=== PATIENT | male | born 1930 | race Caucasian/White ===

== ENCOUNTER → 2016-06-22 15:30 | Outpatient (CLI) | payer MEDICARE, OTHER ==
[2012-08-20 02:17] VITALS: BMI 17.7
[~2016-06-22 15:30] MED LIST: APIXABAN PO; ATIVAN1 MG PO; BAYER CHEWABLE81 MG PO; FLOMAX0.4 MG PO; HEALTHYLAX17 GM PO; PROTONIX40 MG PO; RESTORIL15 MG PO; TAMBOCOR100 MG PO
[2016-06-22 16:04] LABS: HEMOGLOBIN 12.9 g/dL (13.5-17.5); MCH 31.2 pg (26.0-34.0); MCHC 33.1 g/dL (31.0-37.0); MCV 94.4 fL (80.0-100.0); MEAN PLATELET VOLUME 9.6 fL (7.4-10.4); PLATELET COUNT 158 10x3/uL (130-400); RBC 4.13 10x6/uL (4.20-6.10); RDW 13.6 % (11.5-14.5); WBC 6.3 10x3/uL (4.8-10.8)
[2016-06-22 16:26] LABS: T4 THYROXINE 5.7 ug/dL (4.7-13.3); THYROID STIMULATING HORMONE 1.46 uIU/mL (0.36-3.74)
[2016-06-22 16:54] LABS: BASOPHILS 1 % (0-2); EOSINOPHILS 2 % (0-7); LYMPHOCYTES 27 % (15-50); MONOCYTES 4 % (2-11); NEUTROPHILS 65 % (40-80); PLATELET ESTIMATE DECREASED
== END | disposition home or self-care (01) ==
LOC: D.RAD 06-21 10:00 → D.LAB 06-21 11:00 → D.RAD 10:00
PROVIDERS: Internal Medicine Gastroenterology
DX: R10.9 Unspecified abdominal pain (principal); K59.00 Constipation, unspecified

== ENCOUNTER → 2016-10-12 14:35 | Outpatient (CLI) | payer MEDICARE, OTHER ==
[2012-08-20 02:17] VITALS: BMI 17.7
[2016-10-12 15:00] LABS: BASOPHILS 0.3 % (0-2); HEMATOCRIT 38.1 % (42.0-54.0); HEMOGLOBIN 13.1 g/dL (13.5-17.5); IMMATURE GRANULOCYTES 0.3 % (0-5); LYMPHOCYTES 19.2 % (15-50); MCHC 34.4 g/dL (31.0-37.0); MCV 93.2 fL (80.0-100.0); MEAN PLATELET VOLUME 9.2 fL (7.4-10.4); MONOCYTES 8.6 % (2-11); NEUTROPHILS 67.6 % (40-80); PLATELET COUNT 176 10x3/uL (130-400); RBC 4.09 10x6/uL (4.20-6.10); RDW 13.6 % (11.5-14.5); WBC 7.7 10x3/uL (4.8-10.8)
[2016-10-12 15:29] LABS: ALBUMIN 3.6 g/dL (3.4-5.0); ANION GAP 11.3 mmol/L (8-16); BILIRUBIN - TOTAL 0.36 mg/dL (0.2-1.3); C-REACTIVE PROTEIN 0.2 mg/dL (0.0-0.9); CALCIUM 8.6 mg/dL (8.5-10.1); CARBON DIOXIDE 28.7 mmol/L (21.0-32.0); CREATININE - SERUM 1.1 mg/dL (0.6-1.3); PROTEIN - SERUM 6.9 g/dL (6.4-8.2)
== END | disposition home or self-care (01) ==
LOC: D.LAB 14:35
PROVIDERS: Internal Medicine Gastroenterology
DX: R10.9 Unspecified abdominal pain (principal); R19.7 Diarrhea, unspecified

== ENCOUNTER → 2017-01-29 09:42 | Outpatient (CLI) | payer MEDICARE, OTHER ==
[2012-08-20 02:17] VITALS: BMI 17.7
== END | disposition home or self-care (01) ==
LOC: D.US 09:42
DX: N20.0 Calculus of kidney (principal); R10.9 Unspecified abdominal pain